=== PATIENT | female | born 1955 | race Caucasian/White ===

== ENCOUNTER 2020-05-19 12:15 | Inpatient (IN) ==
[2020-05-19] MEDS: *HR* OxyCODONE/APAP 10/325 TABLET PO PRN (21:17)
[2020-05-19] MEDS: Pregabalin 75 MG CAPSULE PO SCH (21:17)
[2020-05-20 05:48] LABS: Basophils # 0.1 K/mcL (0.0-0.2); Basophils % 0.8 %; Eosinophils # 0.3 K/mcL (0.0-0.6); Eosinophils % 4.4 %; Hematocrit 42.5 % (35.3-44.9); Hemoglobin 12.3 g/dL (11.5-15.4); Immature Granulocytes % 0.3 % (0-4); Lymphocytes % 15.9 %; Mean Corpuscular HGB Conc 28.9 g/dL (31.6-35.5); Mean Corpuscular Hemoglobin 23.5 pg (28.0-33.3); Mean Corpuscular Volume 81.1 fL (83.0-100.0); Monocytes # 0.7 K/mcL (0.0-1.3); Monocytes % 10.7 %; Neutrophils # 4.2 K/mcL (1.6-8.9); Platelet Count 111 K/mcL (140-400); Red Blood Count 5.24 M/mcL (3.82-4.97); Red Cell Distribution Width 19.9 % (11.5-14.5); Segmented Neutrophils % 67.9 %; White Blood Count 6.2 K/mcL (4.3-11.1)
[2020-05-20] MEDS: *HR* OxyCODONE/APAP 10/325 TABLET PO PRN ×3 (05:53→22:26)
[2020-05-20 06:05] LABS: INR 1.1; Prothrombin Time 13.2 Seconds (9.4-12.1)
[2020-05-20 06:07] LABS: Activated Partial Thrombo Time 30.1 Seconds (26.0-36.0)
[2020-05-20 06:11] LABS: eGFR For African Americans > 60 (> 60); eGFR For Non-African Americans > 60 (> 60)
[2020-05-20 07:26] LABS: BUN/Creatinine Ratio 26 (6-26); Blood Urea Nitrogen 22 mg/dL (8-23); Calcium 8.6 mg/dL (8.6-10.3); Carbon Dioxide 42 mEq/L (23-29); Chloride 93 mEq/L (98-107); Glucose 100 mg/dL (70-105); Osmolality,Calculated 291 (280-300); Potassium 3.8 mEq/L (3.5-5.1); Sodium 139 mEq/L (136-145); eGFR For African Americans > 60 (> 60); eGFR For Non-African Americans > 60 (> 60)
[2020-05-20] MEDS ORDERED: Furosemide 40 MG TABLET PO SCH (08:00)
[2020-05-20 08:34] LABS: Platelet Estimate Decreased (Normal)
[2020-05-20] MEDS ORDERED: Propranolol LA (24 HR) 60 MG CAP.SA.24H PO SCH (09:00)
[2020-05-20] MEDS: allopurinoL 300 MG TABLET PO SCH (09:33)
[2020-05-20] MEDS: Pregabalin 75 MG CAPSULE PO SCH ×3 (09:33→22:12)
[2020-05-20] MEDS: amLODIPine 5 MG TABLET PO SCH (09:34)
[2020-05-20] MEDS: lisinopriL 20 MG TABLET PO SCH (09:34)
[2020-05-20] MEDS: Multivit/Ca/Min/Fe/FA 1 TAB TABLET PO SCH (09:34)
[2020-05-20] MEDS: Loratadine 10 MG TABLET PO SCH (09:34)
[2020-05-20] MEDS: Spironolactone 25 MG TABLET PO SCH (09:34)
[2020-05-20] MEDS: polyethylene glycoL 3350 17 GM POWD.PACK PO SCH (09:34)
[2020-05-20] MEDS: Aspirin Enteric Coated 81 MG Tablet PO SCH (09:34)
[2020-05-20] MEDS: Budesonide/Formoterol 80/4.5 1 PUFF INH IH SCH ×2 (15:23→21:24)
[2020-05-21] MEDS: *HR* OxyCODONE/APAP 10/325 TABLET PO PRN ×3 (06:10→22:16)
[2020-05-21] MEDS: allopurinoL 300 MG TABLET PO SCH (08:40)
[2020-05-21] MEDS: Pregabalin 75 MG CAPSULE PO SCH ×3 (08:40→20:19)
[2020-05-21] MEDS: Propranolol LA (24 HR) 60 MG CAP.SA.24H PO SCH (08:40)
[2020-05-21] MEDS: Furosemide 40 MG TABLET PO SCH (08:41)
[2020-05-21] MEDS: Loratadine 10 MG TABLET PO SCH (08:42)
[2020-05-21] MEDS: polyethylene glycoL 3350 17 GM POWD.PACK PO SCH (08:42)
[2020-05-21] MEDS: Aspirin Enteric Coated 81 MG Tablet PO SCH (08:42)
[2020-05-21] MEDS: Multivit/Ca/Min/Fe/FA 1 TAB TABLET PO SCH (08:42)
[2020-05-21] MEDS: Budesonide/Formoterol 80/4.5 1 PUFF INH IH SCH ×2 (09:12→22:31)
[2020-05-22] MEDS: *HR* OxyCODONE/APAP 10/325 TABLET PO PRN ×4 (05:01→23:29)
[2020-05-22] MEDS: polyethylene glycoL 3350 17 GM POWD.PACK PO SCH (08:40)
[2020-05-22] MEDS: Loratadine 10 MG TABLET PO SCH (08:41)
[2020-05-22] MEDS: Aspirin Enteric Coated 81 MG Tablet PO SCH (08:41)
[2020-05-22] MEDS: allopurinoL 300 MG TABLET PO SCH (08:41)
[2020-05-22] MEDS: Multivit/Ca/Min/Fe/FA 1 TAB TABLET PO SCH (08:42)
[2020-05-22] MEDS: Propranolol LA (24 HR) 60 MG CAP.SA.24H PO SCH (08:42)
[2020-05-22] MEDS: Pregabalin 75 MG CAPSULE PO SCH ×3 (08:43→19:58)
[2020-05-22] MEDS: Budesonide/Formoterol 80/4.5 1 PUFF INH IH SCH ×2 (09:23→21:33)
[2020-05-23] MEDS: *HR* OxyCODONE/APAP 10/325 TABLET PO PRN ×3 (05:49→20:09)
[2020-05-23] MEDS: Propranolol LA (24 HR) 60 MG CAP.SA.24H PO SCH (08:14)
[2020-05-23] MEDS: allopurinoL 300 MG TABLET PO SCH (08:14)
[2020-05-23] MEDS: Loratadine 10 MG TABLET PO SCH (08:14)
[2020-05-23] MEDS: polyethylene glycoL 3350 17 GM POWD.PACK PO SCH (08:14)
[2020-05-23] MEDS: Pregabalin 75 MG CAPSULE PO SCH ×3 (08:14→20:09)
[2020-05-23] MEDS: Multivit/Ca/Min/Fe/FA 1 TAB TABLET PO SCH (08:14)
[2020-05-23] MEDS: Aspirin Enteric Coated 81 MG Tablet PO SCH (08:14)
[2020-05-23] MEDS: Budesonide/Formoterol 80/4.5 1 PUFF INH IH SCH ×2 (10:18→22:39)
[2020-05-23 10:34] LABS: Basophils # 0.1 K/mcL (0.0-0.2); Basophils % 0.6 %; Eosinophils # 0.2 K/mcL (0.0-0.6); Eosinophils % 2.2 %; Hemoglobin 11.5 g/dL (11.5-15.4); Immature Granulocytes % 0.5 % (0-4); Lymphocytes # 0.9 K/mcL (0.6-4.6); Lymphocytes % 10.8 %; Mean Corpuscular HGB Conc 28.8 g/dL (31.6-35.5); Mean Corpuscular Hemoglobin 24.1 pg (28.0-33.3); Mean Corpuscular Volume 83.7 fL (83.0-100.0); Monocytes # 0.7 K/mcL (0.0-1.3); Monocytes % 9.3 %; Platelet Count 102 K/mcL (140-400); Red Blood Count 4.78 M/mcL (3.82-4.97); Segmented Neutrophils % 76.6 %; White Blood Count 7.9 K/mcL (4.3-11.1)
[2020-05-23 10:46] LABS: Alanine Aminotransferase 9 Units/L (7-52); Albumin 3.1 g/dL (3.5-5.7); Albumin/Globulin Ratio 1.1 (1.1-2.2); Alkaline Phosphatase 59 Units/L (34-104); Aspartate Amino Transferase 14 Units/L (13-39); BUN/Creatinine Ratio 20 (6-26); Bilirubin,Total 0.5 mg/dL (0.3-1.0); Blood Urea Nitrogen 18 mg/dL (8-23); Calcium 8.9 mg/dL (8.6-10.3); Carbon Dioxide 38 mEq/L (23-29); Chloride 96 mEq/L (98-107); Globulin 2.9 g/dL (2.4-3.5); Glucose 111 mg/dL (70-105); Osmolality,Calculated 285 (280-300); Potassium 4.3 mEq/L (3.5-5.1); Sodium 136 mEq/L (136-145); eGFR For African Americans > 60 (> 60); eGFR For Non-African Americans > 60 (> 60)
[2020-05-23 10:56] LABS: Platelet Estimate Decreased (Normal)
[2020-05-23 10:57] LABS: Anisocytosis 1+ (Not Present); Hypochromasia Present (Not Present)
[2020-05-24] MEDS: *HR* OxyCODONE/APAP 10/325 TABLET PO PRN ×4 (02:56→23:52)
[2020-05-24] MEDS: Propranolol LA (24 HR) 60 MG CAP.SA.24H PO SCH (08:58)
[2020-05-24] MEDS: Furosemide 40 MG TABLET PO SCH (08:59)
[2020-05-24] MEDS: amLODIPine 5 MG TABLET PO SCH (08:59)
[2020-05-24] MEDS: lisinopriL 20 MG TABLET PO SCH (08:59)
[2020-05-24] MEDS: Budesonide/Formoterol 80/4.5 1 PUFF INH IH SCH ×2 (09:13→20:33)
[2020-05-24] MEDS: Multivit/Ca/Min/Fe/FA 1 TAB TABLET PO SCH (09:20)
[2020-05-24] MEDS: Loratadine 10 MG TABLET PO SCH (09:21)
[2020-05-24] MEDS: polyethylene glycoL 3350 17 GM POWD.PACK PO SCH (09:21)
[2020-05-24] MEDS: Spironolactone 25 MG TABLET PO SCH (09:21)
[2020-05-24] MEDS: Aspirin Enteric Coated 81 MG Tablet PO SCH (09:21)
[2020-05-24] MEDS: Pregabalin 75 MG CAPSULE PO SCH ×3 (09:21→20:21)
[2020-05-24] MEDS: allopurinoL 300 MG TABLET PO SCH (09:21)
[2020-05-25] MEDS: Propranolol LA (24 HR) 60 MG CAP.SA.24H PO SCH (07:56)
[2020-05-25] MEDS: lisinopriL 20 MG TABLET PO SCH (08:01)
[2020-05-25] MEDS: Pregabalin 75 MG CAPSULE PO SCH ×3 (08:03→20:49)
[2020-05-25] MEDS: Spironolactone 25 MG TABLET PO SCH (08:03)
[2020-05-25] MEDS: Multivit/Ca/Min/Fe/FA 1 TAB TABLET PO SCH (08:03)
[2020-05-25] MEDS: Loratadine 10 MG TABLET PO SCH (08:03)
[2020-05-25] MEDS: amLODIPine 5 MG TABLET PO SCH (08:03)
[2020-05-25] MEDS: Aspirin Enteric Coated 81 MG Tablet PO SCH (08:03)
[2020-05-25] MEDS: Furosemide 40 MG TABLET PO SCH (08:03)
[2020-05-25] MEDS: allopurinoL 300 MG TABLET PO SCH (08:04)
[2020-05-25] MEDS: polyethylene glycoL 3350 17 GM POWD.PACK PO SCH (08:05)
[2020-05-25] MEDS: Budesonide/Formoterol 80/4.5 1 PUFF INH IH SCH ×2 (10:58→22:43)
[2020-05-25] MEDS: *HR* OxyCODONE/APAP 10/325 TABLET PO PRN ×3 (11:09→23:49)
[2020-05-26] MEDS: *HR* OxyCODONE/APAP 10/325 TABLET PO PRN ×3 (07:25→22:08)
[2020-05-26] MEDS: lisinopriL 20 MG TABLET PO SCH (07:33)
[2020-05-26] MEDS: Aspirin Enteric Coated 81 MG Tablet PO SCH (07:33)
[2020-05-26] MEDS: Spironolactone 25 MG TABLET PO SCH (07:33)
[2020-05-26] MEDS: amLODIPine 5 MG TABLET PO SCH (07:33)
[2020-05-26] MEDS: allopurinoL 300 MG TABLET PO SCH (07:33)
[2020-05-26] MEDS: Multivit/Ca/Min/Fe/FA 1 TAB TABLET PO SCH (07:33)
[2020-05-26] MEDS: Loratadine 10 MG TABLET PO SCH (07:33)
[2020-05-26] MEDS: Propranolol LA (24 HR) 60 MG CAP.SA.24H PO SCH (07:33)
[2020-05-26] MEDS: Furosemide 40 MG TABLET PO SCH (07:33)
[2020-05-26] MEDS: Pregabalin 75 MG CAPSULE PO SCH ×3 (07:33→20:09)
[2020-05-26] MEDS: polyethylene glycoL 3350 17 GM POWD.PACK PO SCH (07:34)
[2020-05-26] MEDS: Budesonide/Formoterol 80/4.5 1 PUFF INH IH SCH ×2 (08:21→22:20)
[2020-05-26 10:04] LABS: Hematocrit 39.3 % (35.3-44.9); Hemoglobin 11.7 g/dL (11.5-15.4); Mean Corpuscular HGB Conc 29.8 g/dL (31.6-35.5); Mean Corpuscular Hemoglobin 24.2 pg (28.0-33.3); Mean Corpuscular Volume 81.2 fL (83.0-100.0); Red Blood Count 4.84 M/mcL (3.82-4.97); Red Cell Distribution Width 18.6 % (11.5-14.5); White Blood Count 7.3 K/mcL (4.3-11.1)
[2020-05-26 10:05] LABS: Platelet Count 77 K/mcL (140-400)
[2020-05-26 10:19] LABS: BUN/Creatinine Ratio 21 (6-26); Blood Urea Nitrogen 16 mg/dL (8-23); Calcium 8.8 mg/dL (8.6-10.3); Carbon Dioxide 34 mEq/L (23-29); Chloride 91 mEq/L (98-107); Glucose 141 mg/dL (70-105); Osmolality,Calculated 272 (280-300); Potassium 4.5 mEq/L (3.5-5.1); Sodium 129 mEq/L (136-145); eGFR For African Americans > 60 (> 60); eGFR For Non-African Americans > 60 (> 60)
[2020-05-26] MEDS: *HR* Heparin 5,000 UNIT/ML VIAL SQ SCH (16:47)
[2020-05-27] MEDS: *HR* OxyCODONE/APAP 10/325 TABLET PO PRN ×3 (05:07→20:01)
[2020-05-27] MEDS: *HR* Heparin 5,000 UNIT/ML VIAL SQ SCH ×2 (05:07→16:51)
[2020-05-27] MEDS: Aspirin Enteric Coated 81 MG Tablet PO SCH (09:21)
[2020-05-27] MEDS: Loratadine 10 MG TABLET PO SCH (09:22)
[2020-05-27] MEDS: Pregabalin 75 MG CAPSULE PO SCH ×3 (09:22→20:01)
[2020-05-27] MEDS: Propranolol LA (24 HR) 60 MG CAP.SA.24H PO SCH (09:22)
[2020-05-27] MEDS: allopurinoL 300 MG TABLET PO SCH (09:22)
[2020-05-27] MEDS: Spironolactone 25 MG TABLET PO SCH (09:22)
[2020-05-27] MEDS: polyethylene glycoL 3350 17 GM POWD.PACK PO SCH (09:23)
[2020-05-27] MEDS: Multivit/Ca/Min/Fe/FA 1 TAB TABLET PO SCH (09:23)
[2020-05-27] MEDS: Furosemide 40 MG TABLET PO SCH (09:23)
[2020-05-27] MEDS: amLODIPine 5 MG TABLET PO SCH (09:23)
[2020-05-27] MEDS: lisinopriL 20 MG TABLET PO SCH (09:24)
[2020-05-27] MEDS: Budesonide/Formoterol 80/4.5 1 PUFF INH IH SCH ×2 (10:07→21:02)
[2020-05-28] MEDS: *HR* OxyCODONE/APAP 10/325 TABLET PO PRN ×2 (03:00→09:03)
[2020-05-28] MEDS: *HR* Heparin 5,000 UNIT/ML VIAL SQ SCH (06:51)
[2020-05-28 07:15] VITALS: BP 109/53
[2020-05-28] MEDS: polyethylene glycoL 3350 17 GM POWD.PACK PO SCH ×2 (08:14→08:18)
[2020-05-28] MEDS: Aspirin Enteric Coated 81 MG Tablet PO SCH (08:15)
[2020-05-28] MEDS: Spironolactone 25 MG TABLET PO SCH (08:15)
[2020-05-28] MEDS: lisinopriL 20 MG TABLET PO SCH (08:15)
[2020-05-28] MEDS: Furosemide 40 MG TABLET PO SCH (08:15)
[2020-05-28] MEDS: Propranolol LA (24 HR) 60 MG CAP.SA.24H PO SCH (08:15)
[2020-05-28] MEDS: Pregabalin 75 MG CAPSULE PO SCH (08:15)
[2020-05-28] MEDS: amLODIPine 5 MG TABLET PO SCH (08:15)
[2020-05-28] MEDS: Multivit/Ca/Min/Fe/FA 1 TAB TABLET PO SCH (08:15)
[2020-05-28] MEDS: Loratadine 10 MG TABLET PO SCH (08:15)
[2020-05-28] MEDS: allopurinoL 300 MG TABLET PO SCH (08:15)
[2020-05-28] MEDS: Budesonide/Formoterol 80/4.5 1 PUFF INH IH SCH (10:13)
== END 2020-05-28 09:40 | disposition home health service (06) | DRG 178 ==
LOC: INPPIK 19:26
PROVIDERS: ADMIT Family Medicine; ATTEND Family Medicine

== ENCOUNTER 2021-08-08 10:42 | Inpatient (IN) ==
[2021-08-08] MEDS: *HR* Rivaroxaban 10 MG TABLET PO SCH (17:36)
[2021-08-08] MEDS: Nystatin POWDER 30 GM BOTTLE TP PRN (17:36)
[2021-08-08] MEDS: *HR* OxyCODONE/APAP 10/325 TABLET PO PRN ×2 (17:36→22:04)
[2021-08-08] MEDS: Pregabalin 75 MG CAPSULE PO SCH (22:03)
[2021-08-09 07:31] LABS: Basophils # 0.1 K/mcL (0.0-0.2); Basophils % 0.6 %; Eosinophils # 0.4 K/mcL (0.0-0.6); Eosinophils % 3.1 %; Hematocrit 35.9 % (35.3-44.9); Hemoglobin 10.9 g/dL (11.5-15.4); Immature Granulocytes % 1.2 % (0-4); Lymphocytes % 8.8 %; Mean Corpuscular HGB Conc 30.4 g/dL (31.6-35.5); Mean Corpuscular Hemoglobin 28.9 pg (28.0-33.3); Mean Corpuscular Volume 95.2 fL (83.0-100.0); Mean Platelet Volume 11.9 fL (9.4-12.4); Monocytes # 0.9 K/mcL (0.0-1.3); Monocytes % 7.9 %; Neutrophils # 9.3 K/mcL (1.6-8.9); Platelet Count 168 K/mcL (140-400); Red Blood Count 3.77 M/mcL (3.82-4.97); Red Cell Distribution Width 14.9 % (11.5-14.5); Segmented Neutrophils % 78.4 %; White Blood Count 11.9 K/mcL (4.3-11.1)
[2021-08-09 07:35] LABS: Lymphocytes # 1.1 K/mcL (0.6-4.6)
[2021-08-09 07:55] LABS: BUN/Creatinine Ratio 40 (6-26); Blood Urea Nitrogen 19 mg/dL (8-23); Calcium 8.2 mg/dL (8.6-10.3); Carbon Dioxide 31 mEq/L (23-29); Chloride 98 mEq/L (98-107); Glucose 91 mg/dL (70-105); Osmolality,Calculated 282 (280-300); Potassium 4.5 mEq/L (3.5-5.1); Sodium 135 mEq/L (136-145); eGFR For African Americans > 60 (> 60); eGFR For Non-African Americans > 60 (> 60)
[2021-08-09] MEDS ORDERED: amLODIPine 5 MG TABLET PO SCH (09:00)
[2021-08-09] MEDS: FLUoxetine 20 MG CAPSULE PO SCH (09:22)
[2021-08-09] MEDS: Pregabalin 75 MG CAPSULE PO SCH ×3 (09:22→22:28)
[2021-08-09] MEDS: Loratadine 10 MG TABLET PO SCH (09:22)
[2021-08-09] MEDS: Multivit/Ca/Min/Fe/FA 1 TAB TABLET PO SCH (09:22)
[2021-08-09] MEDS: *HR* OxyCODONE/APAP 10/325 TABLET PO PRN ×3 (09:22→22:27)
[2021-08-09] MEDS: allopurinoL 300 MG TABLET PO SCH (09:22)
[2021-08-09] MEDS: lisinopriL 20 MG TABLET PO SCH (09:22)
[2021-08-09] MEDS: Sennosides/Docusate Sodium TABLET PO SCH (22:29)
[2021-08-10] MEDS: *HR* OxyCODONE/APAP 10/325 TABLET PO PRN ×4 (06:43→22:03)
[2021-08-10] MEDS: Furosemide 40 MG TABLET PO SCH ×2 (07:20→09:27)
[2021-08-10] MEDS: polyethylene glycoL 3350 17 GM POWD.PACK PO SCH ×2 (07:21→09:27)
[2021-08-10] MEDS: *HR* Rivaroxaban 10 MG TABLET PO SCH ×2 (07:21→16:55)
[2021-08-10 07:37] LABS: Hematocrit 34.3 % (35.3-44.9); Hemoglobin 10.4 g/dL (11.5-15.4); Mean Corpuscular HGB Conc 30.3 g/dL (31.6-35.5); Mean Corpuscular Hemoglobin 28.7 pg (28.0-33.3); Mean Corpuscular Volume 94.8 fL (83.0-100.0); Mean Platelet Volume 12.3 fL (9.4-12.4); Platelet Count 123 K/mcL (140-400); Red Blood Count 3.62 M/mcL (3.82-4.97); Red Cell Distribution Width 15.1 % (11.5-14.5); White Blood Count 11.5 K/mcL (4.3-11.1)
[2021-08-10 07:51] LABS: Alanine Aminotransferase 11 Units/L (7-52); Albumin 2.5 g/dL (3.5-5.7); Alkaline Phosphatase 77 Units/L (34-104); Aspartate Amino Transferase 15 Units/L (13-39); BUN/Creatinine Ratio 30 (6-26); Bilirubin,Total 0.3 mg/dL (0.3-1.0); Blood Urea Nitrogen 15 mg/dL (8-23); Calcium 8.3 mg/dL (8.6-10.3); Carbon Dioxide 39 mEq/L (23-29); Chloride 95 mEq/L (98-107); Globulin 2.5 g/dL (2.4-3.5); Glucose 99 mg/dL (70-105); Magnesium 1.8 mg/dL (1.6-2.6); Osmolality,Calculated 281 (280-300); Potassium 4.6 mEq/L (3.5-5.1); Sodium 135 mEq/L (136-145); eGFR For African Americans > 60 (> 60); eGFR For Non-African Americans > 60 (> 60)
[2021-08-10] MEDS: allopurinoL 300 MG TABLET PO SCH (09:27)
[2021-08-10] MEDS: Sennosides/Docusate Sodium TABLET PO SCH ×2 (09:27→21:04)
[2021-08-10] MEDS: Pregabalin 75 MG CAPSULE PO SCH ×3 (09:27→21:05)
[2021-08-10] MEDS: Loratadine 10 MG TABLET PO SCH (09:27)
[2021-08-10] MEDS: FLUoxetine 20 MG CAPSULE PO SCH (09:27)
[2021-08-10] MEDS: lisinopriL 20 MG TABLET PO SCH (09:28)
[2021-08-10] MEDS: Multivit/Ca/Min/Fe/FA 1 TAB TABLET PO SCH (09:30)
[2021-08-11] MEDS: FLUoxetine 20 MG CAPSULE PO SCH (08:36)
[2021-08-11] MEDS: allopurinoL 300 MG TABLET PO SCH (08:36)
[2021-08-11] MEDS: Multivit/Ca/Min/Fe/FA 1 TAB TABLET PO SCH ×2 (08:36→10:47)
[2021-08-11] MEDS: Loratadine 10 MG TABLET PO SCH (08:36)
[2021-08-11] MEDS: Pregabalin 75 MG CAPSULE PO SCH ×3 (08:37→20:36)
[2021-08-11] MEDS: lisinopriL 20 MG TABLET PO SCH (08:37)
[2021-08-11] MEDS: Sennosides/Docusate Sodium TABLET PO SCH ×2 (08:37→20:36)
[2021-08-11] MEDS: Furosemide 40 MG TABLET PO SCH (08:38)
[2021-08-11] MEDS: polyethylene glycoL 3350 17 GM POWD.PACK PO SCH (08:38)
[2021-08-11] MEDS: *HR* OxyCODONE/APAP 10/325 TABLET PO PRN ×3 (08:45→20:42)
[2021-08-11] MEDS: *HR* Rivaroxaban 10 MG TABLET PO SCH (16:40)
[2021-08-12] MEDS: Sennosides/Docusate Sodium TABLET PO SCH ×2 (10:36→21:04)
[2021-08-12] MEDS: Furosemide 40 MG TABLET PO SCH (10:36)
[2021-08-12] MEDS: Loratadine 10 MG TABLET PO SCH (10:37)
[2021-08-12] MEDS: Multivit/Ca/Min/Fe/FA 1 TAB TABLET PO SCH (10:37)
[2021-08-12] MEDS: lisinopriL 20 MG TABLET PO SCH (10:37)
[2021-08-12] MEDS: polyethylene glycoL 3350 17 GM POWD.PACK PO SCH (10:37)
[2021-08-12] MEDS: FLUoxetine 20 MG CAPSULE PO SCH (10:37)
[2021-08-12] MEDS: allopurinoL 300 MG TABLET PO SCH (10:37)
[2021-08-12] MEDS: Pregabalin 75 MG CAPSULE PO SCH ×3 (10:37→21:05)
[2021-08-12] MEDS: *HR* OxyCODONE/APAP 10/325 TABLET PO PRN ×2 (11:01→18:24)
[2021-08-12] MEDS: *HR* Rivaroxaban 10 MG TABLET PO SCH (18:24)
[2021-08-13] MEDS: *HR* OxyCODONE/APAP 10/325 TABLET PO PRN ×4 (06:01→22:00)
[2021-08-13] MEDS: Sennosides/Docusate Sodium TABLET PO SCH ×2 (09:33→20:59)
[2021-08-13] MEDS: FLUoxetine 20 MG CAPSULE PO SCH (09:33)
[2021-08-13] MEDS: Loratadine 10 MG TABLET PO SCH (09:33)
[2021-08-13] MEDS: lisinopriL 20 MG TABLET PO SCH (09:33)
[2021-08-13] MEDS: Furosemide 40 MG TABLET PO SCH (09:33)
[2021-08-13] MEDS: Pregabalin 75 MG CAPSULE PO SCH ×3 (09:33→20:57)
[2021-08-13] MEDS: polyethylene glycoL 3350 17 GM POWD.PACK PO SCH (09:34)
[2021-08-13] MEDS: allopurinoL 300 MG TABLET PO SCH (09:34)
[2021-08-13] MEDS: Multivit/Ca/Min/Fe/FA 1 TAB TABLET PO SCH (09:35)
[2021-08-13] MEDS: *HR* Rivaroxaban 10 MG TABLET PO SCH (18:09)
[2021-08-14] MEDS: *HR* OxyCODONE/APAP 10/325 TABLET PO PRN ×4 (01:53→20:06)
[2021-08-14] MEDS: Pregabalin 75 MG CAPSULE PO SCH ×3 (08:56→20:04)
[2021-08-14] MEDS: allopurinoL 300 MG TABLET PO SCH (08:56)
[2021-08-14] MEDS: FLUoxetine 20 MG CAPSULE PO SCH (08:57)
[2021-08-14] MEDS: Loratadine 10 MG TABLET PO SCH (08:58)
[2021-08-14] MEDS: Furosemide 40 MG TABLET PO SCH (08:58)
[2021-08-14] MEDS: lisinopriL 20 MG TABLET PO SCH (08:59)
[2021-08-14] MEDS: Sennosides/Docusate Sodium TABLET PO SCH ×2 (09:00→20:06)
[2021-08-14] MEDS: Multivit/Ca/Min/Fe/FA 1 TAB TABLET PO SCH (09:01)
[2021-08-14] MEDS: polyethylene glycoL 3350 17 GM POWD.PACK PO SCH (09:01)
[2021-08-14] MEDS: *HR* Rivaroxaban 10 MG TABLET PO SCH (16:52)
[2021-08-14 18:15] LABS: Bilirubin,Urine Negative (Negative); Blood,Urine Negative (Negative); Clarity,Urine Clear (Clear); Color,Urine Yellow (Yellow); Glucose,Urine (UA) Normal (Normal); Ketones,Urine Negative (Negative); Leukocyte Esterase,Urine Small (Negative); Nitrite,Urine Negative (Negative); Protein,Urine Negative (Neg-Trace); Urobilinogen,Urine Normal (Normal)
[2021-08-14 18:23] LABS: Bacteria,Urine Few per hpf (None-Few); RBC,Urine 0-3 per hpf (0-3); Squamous Epithelial Cell,Urine Few per hpf (None-Few)
[2021-08-15] MEDS: *HR* OxyCODONE/APAP 10/325 TABLET PO PRN ×5 (06:48→22:53)
[2021-08-15] MEDS: Sennosides/Docusate Sodium TABLET PO SCH ×2 (08:33→22:53)
[2021-08-15] MEDS: Loratadine 10 MG TABLET PO SCH (08:33)
[2021-08-15] MEDS: Furosemide 40 MG TABLET PO SCH (08:33)
[2021-08-15] MEDS: FLUoxetine 20 MG CAPSULE PO SCH (08:33)
[2021-08-15] MEDS: lisinopriL 20 MG TABLET PO SCH (08:34)
[2021-08-15] MEDS: Multivit/Ca/Min/Fe/FA 1 TAB TABLET PO SCH (08:34)
[2021-08-15] MEDS: Pregabalin 75 MG CAPSULE PO SCH ×3 (08:34→22:52)
[2021-08-15] MEDS: allopurinoL 300 MG TABLET PO SCH (08:34)
[2021-08-15] MEDS: polyethylene glycoL 3350 17 GM POWD.PACK PO SCH (08:34)
[2021-08-15] MEDS: *HR* Rivaroxaban 10 MG TABLET PO SCH (17:58)
[2021-08-16] MEDS: *HR* OxyCODONE/APAP 10/325 TABLET PO PRN ×4 (04:05→21:50)
[2021-08-16] MEDS: Furosemide 40 MG TABLET PO SCH (08:20)
[2021-08-16] MEDS: Loratadine 10 MG TABLET PO SCH (08:20)
[2021-08-16] MEDS: allopurinoL 300 MG TABLET PO SCH (08:20)
[2021-08-16] MEDS: Pregabalin 75 MG CAPSULE PO SCH ×3 (08:20→21:08)
[2021-08-16] MEDS: lisinopriL 20 MG TABLET PO SCH (08:21)
[2021-08-16] MEDS: FLUoxetine 20 MG CAPSULE PO SCH (08:21)
[2021-08-16] MEDS: Sennosides/Docusate Sodium TABLET PO SCH ×2 (08:21→21:08)
[2021-08-16] MEDS: polyethylene glycoL 3350 17 GM POWD.PACK PO SCH (08:21)
[2021-08-16] MEDS: *HR* Rivaroxaban 10 MG TABLET PO SCH (17:32)
[2021-08-17] MEDS: *HR* OxyCODONE/APAP 10/325 TABLET PO PRN ×4 (04:48→22:20)
[2021-08-17] MEDS: FLUoxetine 20 MG CAPSULE PO SCH (09:22)
[2021-08-17] MEDS: lisinopriL 20 MG TABLET PO SCH (09:22)
[2021-08-17] MEDS: Pregabalin 75 MG CAPSULE PO SCH ×3 (09:22→22:20)
[2021-08-17] MEDS: Sennosides/Docusate Sodium TABLET PO SCH ×2 (09:23→22:20)
[2021-08-17] MEDS: Furosemide 40 MG TABLET PO SCH (09:23)
[2021-08-17] MEDS: polyethylene glycoL 3350 17 GM POWD.PACK PO SCH (09:23)
[2021-08-17] MEDS: Loratadine 10 MG TABLET PO SCH (09:23)
[2021-08-17] MEDS: allopurinoL 300 MG TABLET PO SCH (09:23)
[2021-08-17] MEDS: *HR* Rivaroxaban 10 MG TABLET PO SCH (17:26)
[2021-08-18] MEDS: lisinopriL 20 MG TABLET PO SCH (06:06)
[2021-08-18] MEDS: FLUoxetine 20 MG CAPSULE PO SCH (06:06)
[2021-08-18] MEDS: Furosemide 40 MG TABLET PO SCH (06:06)
[2021-08-18] MEDS: allopurinoL 300 MG TABLET PO SCH (06:06)
[2021-08-18] MEDS: Loratadine 10 MG TABLET PO SCH (06:06)
[2021-08-18] MEDS: Sennosides/Docusate Sodium TABLET PO SCH ×2 (06:10→21:11)
[2021-08-18] MEDS: *HR* OxyCODONE/APAP 10/325 TABLET PO PRN ×3 (06:10→21:10)
[2021-08-18] MEDS: Pregabalin 75 MG CAPSULE PO SCH ×3 (06:10→21:10)
[2021-08-18] MEDS: polyethylene glycoL 3350 17 GM POWD.PACK PO SCH (06:11)
[2021-08-18] MEDS ORDERED: Fluconazole 150 MG TABLET PO ONE (10:56)
[2021-08-18 11:26] LABS: Basophils # 0.1 K/mcL (0.0-0.2); Basophils % 0.8 %; Eosinophils # 0.3 K/mcL (0.0-0.6); Eosinophils % 3.1 %; Hematocrit 37.1 % (35.3-44.9); Hemoglobin 11.1 g/dL (11.5-15.4); Immature Granulocytes % 0.4 % (0-4); Lymphocytes # 1.1 K/mcL (0.6-4.6); Lymphocytes % 12.9 %; Mean Corpuscular HGB Conc 29.9 g/dL (31.6-35.5); Mean Corpuscular Hemoglobin 28.4 pg (28.0-33.3); Mean Corpuscular Volume 94.9 fL (83.0-100.0); Mean Platelet Volume 11.5 fL (9.4-12.4); Monocytes # 0.7 K/mcL (0.0-1.3); Monocytes % 8.2 %; Neutrophils # 6.2 K/mcL (1.6-8.9); Platelet Count 235 K/mcL (140-400); Red Blood Count 3.91 M/mcL (3.82-4.97); Red Cell Distribution Width 16.1 % (11.5-14.5); Segmented Neutrophils % 74.6 %; White Blood Count 8.4 K/mcL (4.3-11.1)
[2021-08-18 11:47] LABS: BUN/Creatinine Ratio 24 (6-26); Blood Urea Nitrogen 20 mg/dL (8-23); Calcium 8.9 mg/dL (8.6-10.3); Carbon Dioxide 35 mEq/L (23-29); Chloride 95 mEq/L (98-107); Glucose 104 mg/dL (70-105); Osmolality,Calculated 287 (280-300); Potassium 5.3 mEq/L (3.5-5.1); Sodium 137 mEq/L (136-145); eGFR For African Americans > 60 (> 60); eGFR For Non-African Americans > 60 (> 60)
[2021-08-18] MEDS: Doxycycline 100 MG CAPSULE PO SCH (21:10)
[2021-08-18] MEDS: cephALEXin 500 MG CAPSULE PO SCH ×2 (21:10→21:42)
[2021-08-18] MEDS: *HR* Rivaroxaban 10 MG TABLET PO SCH (21:13)
[2021-08-19] MEDS: Loratadine 10 MG TABLET PO SCH (07:42)
[2021-08-19] MEDS: Sennosides/Docusate Sodium TABLET PO SCH ×2 (07:42→19:27)
[2021-08-19] MEDS: allopurinoL 300 MG TABLET PO SCH (07:42)
[2021-08-19] MEDS: FLUoxetine 20 MG CAPSULE PO SCH (07:42)
[2021-08-19] MEDS: Pregabalin 75 MG CAPSULE PO SCH ×3 (07:42→19:27)
[2021-08-19] MEDS: Doxycycline 100 MG CAPSULE PO SCH ×2 (07:43→19:27)
[2021-08-19] MEDS: polyethylene glycoL 3350 17 GM POWD.PACK PO SCH (07:43)
[2021-08-19] MEDS: cephALEXin 500 MG CAPSULE PO SCH ×3 (07:43→19:27)
[2021-08-19] MEDS: Furosemide 40 MG TABLET PO SCH (07:43)
[2021-08-19] MEDS: lisinopriL 20 MG TABLET PO SCH (07:43)
[2021-08-19] MEDS: *HR* OxyCODONE/APAP 10/325 TABLET PO PRN ×2 (14:59→19:27)
[2021-08-19] MEDS: *HR* Rivaroxaban 10 MG TABLET PO SCH (15:09)
[2021-08-20] MEDS: *HR* OxyCODONE/APAP 10/325 TABLET PO PRN ×2 (04:18→08:44)
[2021-08-20] MEDS: Pregabalin 75 MG CAPSULE PO SCH ×3 (08:44→19:56)
[2021-08-20] MEDS: Furosemide 40 MG TABLET PO SCH (08:45)
[2021-08-20] MEDS: Sennosides/Docusate Sodium TABLET PO SCH ×2 (08:45→19:57)
[2021-08-20] MEDS: FLUoxetine 20 MG CAPSULE PO SCH (08:45)
[2021-08-20] MEDS: Loratadine 10 MG TABLET PO SCH (08:45)
[2021-08-20] MEDS: Doxycycline 100 MG CAPSULE PO SCH ×2 (08:45→19:57)
[2021-08-20] MEDS: allopurinoL 300 MG TABLET PO SCH (08:45)
[2021-08-20] MEDS: polyethylene glycoL 3350 17 GM POWD.PACK PO SCH (08:45)
[2021-08-20] MEDS: cephALEXin 500 MG CAPSULE PO SCH ×3 (08:45→19:57)
[2021-08-20] MEDS: *HR* Rivaroxaban 10 MG TABLET PO SCH (16:47)
[2021-08-21] MEDS: *HR* OxyCODONE/APAP 10/325 TABLET PO PRN ×4 (01:24→16:40)
[2021-08-21] MEDS: Sennosides/Docusate Sodium TABLET PO SCH ×2 (09:26→20:09)
[2021-08-21] MEDS: Pregabalin 75 MG CAPSULE PO SCH ×3 (09:27→20:09)
[2021-08-21] MEDS: lisinopriL 20 MG TABLET PO SCH (09:27)
[2021-08-21] MEDS: FLUoxetine 20 MG CAPSULE PO SCH (09:27)
[2021-08-21] MEDS: Furosemide 40 MG TABLET PO SCH ×2 (09:27→20:09)
[2021-08-21] MEDS: Doxycycline 100 MG CAPSULE PO SCH ×2 (09:27→20:09)
[2021-08-21] MEDS: Loratadine 10 MG TABLET PO SCH (09:27)
[2021-08-21] MEDS: cephALEXin 500 MG CAPSULE PO SCH ×3 (09:27→20:09)
[2021-08-21] MEDS: allopurinoL 300 MG TABLET PO SCH (09:28)
[2021-08-21] MEDS: polyethylene glycoL 3350 17 GM POWD.PACK PO SCH (09:28)
[2021-08-21] MEDS: *HR* Rivaroxaban 10 MG TABLET PO SCH (16:38)
[2021-08-22] MEDS: polyethylene glycoL 3350 17 GM POWD.PACK PO SCH (07:24)
[2021-08-22] MEDS: Pregabalin 75 MG CAPSULE PO SCH ×3 (07:27→20:53)
[2021-08-22] MEDS: allopurinoL 300 MG TABLET PO SCH (07:27)
[2021-08-22] MEDS: FLUoxetine 20 MG CAPSULE PO SCH (07:27)
[2021-08-22] MEDS: Doxycycline 100 MG CAPSULE PO SCH ×2 (07:27→20:54)
[2021-08-22] MEDS: Sennosides/Docusate Sodium TABLET PO SCH ×2 (07:27→20:54)
[2021-08-22] MEDS: cephALEXin 500 MG CAPSULE PO SCH ×3 (07:28→20:53)
[2021-08-22] MEDS: lisinopriL 20 MG TABLET PO SCH (07:28)
[2021-08-22] MEDS: Loratadine 10 MG TABLET PO SCH (07:28)
[2021-08-22] MEDS: Furosemide 40 MG TABLET PO SCH ×2 (07:28→20:54)
[2021-08-22] MEDS: *HR* OxyCODONE/APAP 10/325 TABLET PO PRN ×3 (09:57→22:51)
[2021-08-22 14:49] LABS: BUN/Creatinine Ratio 22 (6-26); Blood Urea Nitrogen 20 mg/dL (8-23); Calcium 9.1 mg/dL (8.6-10.3); Carbon Dioxide 36 mEq/L (23-29); Chloride 96 mEq/L (98-107); Glucose 112 mg/dL (70-105); Osmolality,Calculated 289 (280-300); Potassium 4.4 mEq/L (3.5-5.1); Sodium 138 mEq/L (136-145); eGFR For African Americans > 60 (> 60); eGFR For Non-African Americans > 60 (> 60)
[2021-08-22] MEDS: *HR* Rivaroxaban 10 MG TABLET PO SCH (16:20)
[2021-08-23] MEDS: *HR* OxyCODONE/APAP 10/325 TABLET PO PRN ×4 (06:13→21:29)
[2021-08-23 07:51] LABS: BUN/Creatinine Ratio 28 (6-26); Blood Urea Nitrogen 21 mg/dL (8-23); Calcium 8.1 mg/dL (8.6-10.3); Carbon Dioxide 35 mEq/L (23-29); Chloride 97 mEq/L (98-107); Glucose 99 mg/dL (70-105); Osmolality,Calculated 287 (280-300); Potassium 3.4 mEq/L (3.5-5.1); Sodium 137 mEq/L (136-145); eGFR For African Americans > 60 (> 60); eGFR For Non-African Americans > 60 (> 60)
[2021-08-23] MEDS: cephALEXin 500 MG CAPSULE PO SCH ×2 (09:20→15:30)
[2021-08-23] MEDS: Loratadine 10 MG TABLET PO SCH (09:20)
[2021-08-23] MEDS: FLUoxetine 20 MG CAPSULE PO SCH (09:20)
[2021-08-23] MEDS: lisinopriL 20 MG TABLET PO SCH (09:20)
[2021-08-23] MEDS: allopurinoL 300 MG TABLET PO SCH (09:20)
[2021-08-23] MEDS: Sennosides/Docusate Sodium TABLET PO SCH ×2 (09:20→21:28)
[2021-08-23] MEDS: Furosemide 40 MG TABLET PO SCH ×2 (09:20→15:30)
[2021-08-23] MEDS: Doxycycline 100 MG CAPSULE PO SCH ×2 (09:20→21:28)
[2021-08-23] MEDS: polyethylene glycoL 3350 17 GM POWD.PACK PO SCH (09:21)
[2021-08-23] MEDS: Pregabalin 75 MG CAPSULE PO SCH ×3 (09:21→21:29)
[2021-08-23] MEDS: *HR* Rivaroxaban 10 MG TABLET PO SCH (17:29)
[2021-08-24] MEDS: *HR* OxyCODONE/APAP 10/325 TABLET PO PRN ×3 (03:41→20:13)
[2021-08-24] MEDS: Furosemide 40 MG TABLET PO SCH ×2 (06:07→14:08)
[2021-08-24 06:59] LABS: Hematocrit 31.7 % (35.3-44.9); Hemoglobin 9.4 g/dL (11.5-15.4); Mean Corpuscular HGB Conc 29.7 g/dL (31.6-35.5); Mean Corpuscular Hemoglobin 28.1 pg (28.0-33.3); Mean Corpuscular Volume 94.6 fL (83.0-100.0); Platelet Count 100 K/mcL (140-400); Red Blood Count 3.35 M/mcL (3.82-4.97); Red Cell Distribution Width 15.8 % (11.5-14.5); White Blood Count 5.8 K/mcL (4.3-11.1)
[2021-08-24 07:15] LABS: BUN/Creatinine Ratio 32 (6-26); Blood Urea Nitrogen 23 mg/dL (8-23); Calcium 8.2 mg/dL (8.6-10.3); Carbon Dioxide 35 mEq/L (23-29); Chloride 97 mEq/L (98-107); Glucose 96 mg/dL (70-105); Osmolality,Calculated 290 (280-300); Potassium 3.8 mEq/L (3.5-5.1); Sodium 138 mEq/L (136-145); eGFR For African Americans > 60 (> 60); eGFR For Non-African Americans > 60 (> 60)
[2021-08-24] MEDS ORDERED: Furosemide 40 MG TABLET PO SCH (09:00)
[2021-08-24] MEDS: Pregabalin 75 MG CAPSULE PO SCH ×3 (09:03→20:13)
[2021-08-24] MEDS: Doxycycline 100 MG CAPSULE PO SCH ×2 (09:04→20:13)
[2021-08-24] MEDS: FLUoxetine 20 MG CAPSULE PO SCH (09:04)
[2021-08-24] MEDS: lisinopriL 20 MG TABLET PO SCH (09:04)
[2021-08-24] MEDS: allopurinoL 300 MG TABLET PO SCH (09:04)
[2021-08-24] MEDS: Sennosides/Docusate Sodium TABLET PO SCH ×2 (09:04→20:13)
[2021-08-24] MEDS: polyethylene glycoL 3350 17 GM POWD.PACK PO SCH (09:05)
[2021-08-24] MEDS: Loratadine 10 MG TABLET PO SCH (09:05)
[2021-08-24] MEDS: levoFLOXacin 750 MG/150 ML 750 MG/150 ML BAG IVPB SCH (12:10)
[2021-08-24] MEDS: *HR* Rivaroxaban 10 MG TABLET PO SCH (17:57)
[2021-08-25] MEDS: *HR* OxyCODONE/APAP 10/325 TABLET PO PRN ×4 (00:15→17:39)
[2021-08-25] MEDS: Furosemide 40 MG TABLET PO SCH ×2 (06:13→17:35)
[2021-08-25] MEDS: levoFLOXacin 750 MG/150 ML 750 MG/150 ML BAG IVPB SCH (09:40)
[2021-08-25] MEDS: Pregabalin 75 MG CAPSULE PO SCH ×3 (09:43→19:55)
[2021-08-25] MEDS: Loratadine 10 MG TABLET PO SCH (09:43)
[2021-08-25] MEDS: allopurinoL 300 MG TABLET PO SCH (09:44)
[2021-08-25] MEDS: FLUoxetine 20 MG CAPSULE PO SCH (09:44)
[2021-08-25] MEDS: lisinopriL 20 MG TABLET PO SCH (09:44)
[2021-08-25] MEDS: Doxycycline 100 MG CAPSULE PO SCH ×2 (09:44→19:55)
[2021-08-25] MEDS: Sennosides/Docusate Sodium TABLET PO SCH ×2 (09:45→19:55)
[2021-08-25] MEDS: polyethylene glycoL 3350 17 GM POWD.PACK PO SCH (09:45)
[2021-08-25] MEDS: *HR* Rivaroxaban 10 MG TABLET PO SCH (17:36)
[2021-08-25] MEDS: VOLTAREN PO SCH (19:56)
[2021-08-26] MEDS: Furosemide 40 MG TABLET PO SCH ×2 (05:20→15:14)
[2021-08-26] MEDS: Pregabalin 75 MG CAPSULE PO SCH ×3 (09:29→20:12)
[2021-08-26] MEDS: levoFLOXacin 750 MG/150 ML 750 MG/150 ML BAG IVPB SCH (09:29)
[2021-08-26] MEDS: Sennosides/Docusate Sodium TABLET PO SCH ×2 (09:29→20:12)
[2021-08-26] MEDS: FLUoxetine 20 MG CAPSULE PO SCH (09:30)
[2021-08-26] MEDS: allopurinoL 300 MG TABLET PO SCH (09:30)
[2021-08-26] MEDS: Loratadine 10 MG TABLET PO SCH (09:30)
[2021-08-26] MEDS: Doxycycline 100 MG CAPSULE PO SCH ×2 (09:31→20:12)
[2021-08-26] MEDS: lisinopriL 20 MG TABLET PO SCH (09:31)
[2021-08-26] MEDS: VOLTAREN PO SCH ×2 (09:31→20:13)
[2021-08-26] MEDS: polyethylene glycoL 3350 17 GM POWD.PACK PO SCH (09:31)
[2021-08-26] MEDS: *HR* OxyCODONE/APAP 10/325 TABLET PO PRN ×2 (13:28→20:12)
[2021-08-26] MEDS: *HR* Rivaroxaban 10 MG TABLET PO SCH (17:31)
[2021-08-27] MEDS: *HR* OxyCODONE/APAP 10/325 TABLET PO PRN ×4 (01:44→18:53)
[2021-08-27] MEDS: Furosemide 40 MG TABLET PO SCH ×2 (06:31→16:29)
[2021-08-27 07:29] LABS: Basophils % 0.8 %; Eosinophils # 0.2 K/mcL (0.0-0.6); Eosinophils % 4.3 %; Hematocrit 33.4 % (35.3-44.9); Hemoglobin 9.7 g/dL (11.5-15.4); Immature Granulocytes % 0.4 % (0-4); Lymphocytes # 0.8 K/mcL (0.6-4.6); Lymphocytes % 15.3 %; Mean Corpuscular Hemoglobin 26.9 pg (28.0-33.3); Mean Corpuscular Volume 92.5 fL (83.0-100.0); Mean Platelet Volume 11.5 fL (9.4-12.4); Monocytes # 0.5 K/mcL (0.0-1.3); Monocytes % 9.6 %; Neutrophils # 3.7 K/mcL (1.6-8.9); Red Blood Count 3.61 M/mcL (3.82-4.97); Red Cell Distribution Width 15.6 % (11.5-14.5); Segmented Neutrophils % 69.6 %; White Blood Count 5.3 K/mcL (4.3-11.1)
[2021-08-27 07:30] LABS: Platelet Count 86 K/mcL (140-400)
[2021-08-27 07:44] LABS: BUN/Creatinine Ratio 33 (6-26); Blood Urea Nitrogen 27 mg/dL (8-23); Calcium 8.5 mg/dL (8.6-10.3); Carbon Dioxide 36 mEq/L (23-29); Chloride 96 mEq/L (98-107); Glucose 105 mg/dL (70-105); Osmolality,Calculated 291 (280-300); Potassium 3.7 mEq/L (3.5-5.1); Sodium 138 mEq/L (136-145); eGFR For African Americans > 60 (> 60); eGFR For Non-African Americans > 60 (> 60)
[2021-08-27] MEDS: levoFLOXacin 750 MG/150 ML 750 MG/150 ML BAG IVPB SCH (09:24)
[2021-08-27] MEDS: Pregabalin 75 MG CAPSULE PO SCH ×3 (09:25→21:44)
[2021-08-27] MEDS: Loratadine 10 MG TABLET PO SCH (09:25)
[2021-08-27] MEDS: Sennosides/Docusate Sodium TABLET PO SCH ×2 (09:25→21:45)
[2021-08-27] MEDS: Doxycycline 100 MG CAPSULE PO SCH ×2 (09:25→21:44)
[2021-08-27] MEDS: lisinopriL 20 MG TABLET PO SCH (09:25)
[2021-08-27] MEDS: allopurinoL 300 MG TABLET PO SCH (09:25)
[2021-08-27] MEDS: FLUoxetine 20 MG CAPSULE PO SCH (09:26)
[2021-08-27] MEDS: polyethylene glycoL 3350 17 GM POWD.PACK PO SCH (09:27)
[2021-08-27] MEDS: VOLTAREN PO SCH ×2 (09:27→21:45)
[2021-08-27] MEDS: *HR* Rivaroxaban 10 MG TABLET PO SCH (16:29)
[2021-08-28] MEDS: *HR* OxyCODONE/APAP 10/325 TABLET PO PRN ×4 (01:43→23:11)
[2021-08-28] MEDS: Furosemide 40 MG TABLET PO SCH ×2 (05:28→16:35)
[2021-08-28] MEDS: allopurinoL 300 MG TABLET PO SCH (08:56)
[2021-08-28] MEDS: Doxycycline 100 MG CAPSULE PO SCH ×2 (08:56→20:42)
[2021-08-28] MEDS: Pregabalin 75 MG CAPSULE PO SCH ×3 (08:56→20:43)
[2021-08-28] MEDS: FLUoxetine 20 MG CAPSULE PO SCH (08:56)
[2021-08-28] MEDS: Loratadine 10 MG TABLET PO SCH (08:57)
[2021-08-28] MEDS: Sennosides/Docusate Sodium TABLET PO SCH ×2 (08:57→20:43)
[2021-08-28] MEDS: lisinopriL 20 MG TABLET PO SCH (08:58)
[2021-08-28] MEDS: VOLTAREN PO SCH ×2 (09:04→20:44)
[2021-08-28] MEDS: polyethylene glycoL 3350 17 GM POWD.PACK PO SCH (09:04)
[2021-08-28] MEDS: levoFLOXacin 750 MG/150 ML 750 MG/150 ML BAG IVPB SCH (10:02)
[2021-08-28] MEDS: *HR* Rivaroxaban 10 MG TABLET PO SCH (16:33)
[2021-08-29] MEDS: Furosemide 40 MG TABLET PO SCH ×2 (06:40→15:46)
[2021-08-29] MEDS: Loratadine 10 MG TABLET PO SCH (08:28)
[2021-08-29] MEDS: Pregabalin 75 MG CAPSULE PO SCH ×3 (08:28→21:28)
[2021-08-29] MEDS: levoFLOXacin 750 MG/150 ML 750 MG/150 ML BAG IVPB SCH (08:28)
[2021-08-29] MEDS: FLUoxetine 20 MG CAPSULE PO SCH (08:28)
[2021-08-29] MEDS: *HR* OxyCODONE/APAP 10/325 TABLET PO PRN ×3 (08:28→23:31)
[2021-08-29] MEDS: VOLTAREN PO SCH ×2 (08:29→21:29)
[2021-08-29] MEDS: allopurinoL 300 MG TABLET PO SCH (08:29)
[2021-08-29] MEDS: Sennosides/Docusate Sodium TABLET PO SCH ×2 (08:29→21:28)
[2021-08-29] MEDS: polyethylene glycoL 3350 17 GM POWD.PACK PO SCH (08:29)
[2021-08-29] MEDS: lisinopriL 20 MG TABLET PO SCH (08:29)
[2021-08-29] MEDS: *HR* Rivaroxaban 10 MG TABLET PO SCH (15:46)
[2021-08-29] MEDS: Nystatin POWDER 30 GM BOTTLE TP PRN (21:28)
[2021-08-30] MEDS: Furosemide 40 MG TABLET PO SCH ×2 (06:52→17:36)
[2021-08-30] MEDS: allopurinoL 300 MG TABLET PO SCH (09:52)
[2021-08-30] MEDS: lisinopriL 20 MG TABLET PO SCH (09:52)
[2021-08-30] MEDS: FLUoxetine 20 MG CAPSULE PO SCH (09:52)
[2021-08-30] MEDS: Sennosides/Docusate Sodium TABLET PO SCH ×2 (09:52→23:00)
[2021-08-30] MEDS: Pregabalin 75 MG CAPSULE PO SCH ×3 (09:52→23:43)
[2021-08-30] MEDS: levoFLOXacin 750 MG TABLET PO SCH (09:53)
[2021-08-30] MEDS: Loratadine 10 MG TABLET PO SCH (09:53)
[2021-08-30] MEDS: polyethylene glycoL 3350 17 GM POWD.PACK PO SCH (09:54)
[2021-08-30] MEDS: VOLTAREN PO SCH ×2 (09:54→23:00)
[2021-08-30] MEDS: *HR* Rivaroxaban 10 MG TABLET PO SCH (17:18)
[2021-08-30] MEDS: *HR* OxyCODONE/APAP 10/325 TABLET PO PRN (17:19)
[2021-08-30] MEDS ORDERED: polyethylene glycoL 3350 17 GM POWD.PACK PO PRN (23:29)
[2021-08-31] MEDS: *HR* OxyCODONE/APAP 10/325 TABLET PO PRN ×3 (03:08→23:26)
[2021-08-31] MEDS: Furosemide 40 MG TABLET PO SCH ×2 (08:00→15:57)
[2021-08-31] MEDS: polyethylene glycoL 3350 17 GM POWD.PACK PO SCH (09:24)
[2021-08-31] MEDS: levoFLOXacin 750 MG TABLET PO SCH (09:24)
[2021-08-31] MEDS: Sennosides/Docusate Sodium TABLET PO SCH ×2 (09:24→21:05)
[2021-08-31] MEDS: Pregabalin 75 MG CAPSULE PO SCH ×3 (09:24→21:05)
[2021-08-31] MEDS: allopurinoL 300 MG TABLET PO SCH (09:25)
[2021-08-31] MEDS: FLUoxetine 20 MG CAPSULE PO SCH (09:25)
[2021-08-31] MEDS: Loratadine 10 MG TABLET PO SCH (09:25)
[2021-08-31] MEDS: VOLTAREN PO SCH ×2 (09:25→21:06)
[2021-08-31] MEDS: lisinopriL 20 MG TABLET PO SCH (09:26)
[2021-08-31] MEDS ORDERED: Acetaminophen 325 MG TABLET PO PRN (13:29)
[2021-08-31] MEDS: *HR* Rivaroxaban 10 MG TABLET PO SCH (18:30)
[2021-09-01] MEDS: Furosemide 40 MG TABLET PO SCH ×2 (06:05→17:13)
[2021-09-01] MEDS: *HR* OxyCODONE/APAP 10/325 TABLET PO PRN ×3 (06:08→21:35)
[2021-09-01] MEDS: levoFLOXacin 750 MG TABLET PO SCH (07:47)
[2021-09-01] MEDS: Sennosides/Docusate Sodium TABLET PO SCH ×2 (07:47→21:34)
[2021-09-01] MEDS: Loratadine 10 MG TABLET PO SCH (07:47)
[2021-09-01] MEDS: polyethylene glycoL 3350 17 GM POWD.PACK PO SCH (07:47)
[2021-09-01] MEDS: FLUoxetine 20 MG CAPSULE PO SCH (07:47)
[2021-09-01] MEDS: Pregabalin 75 MG CAPSULE PO SCH ×3 (07:47→21:35)
[2021-09-01] MEDS: allopurinoL 300 MG TABLET PO SCH (07:48)
[2021-09-01] MEDS: VOLTAREN PO SCH ×2 (07:49→21:36)
[2021-09-01] MEDS: lisinopriL 10 MG TABLET PO SCH (07:49)
[2021-09-01] MEDS: *HR* Rivaroxaban 10 MG TABLET PO SCH (17:13)
[2021-09-02] MEDS: Furosemide 40 MG TABLET PO SCH ×2 (05:01→15:26)
[2021-09-02] MEDS: *HR* OxyCODONE/APAP 10/325 TABLET PO PRN ×4 (05:01→22:04)
[2021-09-02 07:40] LABS: Basophils # 0.1 K/mcL (0.0-0.2); Basophils % 0.9 %; Eosinophils # 0.3 K/mcL (0.0-0.6); Eosinophils % 3.3 %; Hemoglobin 10.9 g/dL (11.5-15.4); Immature Granulocytes % 0.4 % (0-4); Lymphocytes % 13.2 %; Mean Corpuscular HGB Conc 29.5 g/dL (31.6-35.5); Mean Corpuscular Hemoglobin 26.7 pg (28.0-33.3); Mean Corpuscular Volume 90.5 fL (83.0-100.0); Mean Platelet Volume 11.3 fL (9.4-12.4); Monocytes # 0.7 K/mcL (0.0-1.3); Monocytes % 9.4 %; Neutrophils # 5.5 K/mcL (1.6-8.9); Red Blood Count 4.09 M/mcL (3.82-4.97); Red Cell Distribution Width 15.7 % (11.5-14.5); Segmented Neutrophils % 72.8 %; White Blood Count 7.6 K/mcL (4.3-11.1)
[2021-09-02 08:32] LABS: Platelet Count 87 K/mcL (140-400)
[2021-09-02 08:45] LABS: BUN/Creatinine Ratio 31 (6-26); Blood Urea Nitrogen 28 mg/dL (8-23); Calcium 8.9 mg/dL (8.6-10.3); Carbon Dioxide 36 mEq/L (23-29); Chloride 98 mEq/L (98-107); Glucose 108 mg/dL (70-105); Magnesium 1.9 mg/dL (1.6-2.6); Osmolality,Calculated 296 (280-300); Potassium 4.8 mEq/L (3.5-5.1); Sodium 140 mEq/L (136-145); eGFR For African Americans > 60 (> 60); eGFR For Non-African Americans > 60 (> 60)
[2021-09-02] MEDS: FLUoxetine 20 MG CAPSULE PO SCH (09:34)
[2021-09-02] MEDS: levoFLOXacin 750 MG TABLET PO SCH (09:34)
[2021-09-02] MEDS: Loratadine 10 MG TABLET PO SCH (09:34)
[2021-09-02] MEDS: Sennosides/Docusate Sodium TABLET PO SCH ×2 (09:34→22:03)
[2021-09-02] MEDS: Pregabalin 75 MG CAPSULE PO SCH ×3 (09:34→22:03)
[2021-09-02] MEDS: allopurinoL 300 MG TABLET PO SCH (09:34)
[2021-09-02] MEDS: lisinopriL 10 MG TABLET PO SCH (09:34)
[2021-09-02] MEDS: polyethylene glycoL 3350 17 GM POWD.PACK PO SCH (09:35)
[2021-09-02] MEDS: VOLTAREN PO SCH ×2 (09:35→22:07)
[2021-09-02] MEDS: *HR* Rivaroxaban 10 MG TABLET PO SCH (15:27)
[2021-09-03] MEDS: Nystatin POWDER 30 GM BOTTLE TP PRN (06:29)
[2021-09-03] MEDS: Furosemide 40 MG TABLET PO SCH ×2 (06:29→17:09)
[2021-09-03] MEDS: Pregabalin 75 MG CAPSULE PO SCH ×3 (10:06→21:47)
[2021-09-03] MEDS: lisinopriL 10 MG TABLET PO SCH (10:07)
[2021-09-03] MEDS: allopurinoL 300 MG TABLET PO SCH (10:07)
[2021-09-03] MEDS: Sennosides/Docusate Sodium TABLET PO SCH ×2 (10:07→21:47)
[2021-09-03] MEDS: VOLTAREN PO SCH ×2 (10:07→21:48)
[2021-09-03] MEDS: FLUoxetine 20 MG CAPSULE PO SCH (10:07)
[2021-09-03] MEDS: Loratadine 10 MG TABLET PO SCH (10:07)
[2021-09-03] MEDS: polyethylene glycoL 3350 17 GM POWD.PACK PO SCH (10:07)
[2021-09-03] MEDS: *HR* OxyCODONE/APAP 10/325 TABLET PO PRN ×2 (13:40→21:47)
[2021-09-03] MEDS: *HR* Rivaroxaban 10 MG TABLET PO SCH (17:07)
[2021-09-04] MEDS: Furosemide 40 MG TABLET PO SCH ×2 (05:52→16:58)
[2021-09-04] MEDS: *HR* OxyCODONE/APAP 10/325 TABLET PO PRN ×3 (05:52→23:38)
[2021-09-04] MEDS: VOLTAREN PO SCH ×2 (10:23→19:40)
[2021-09-04] MEDS: lisinopriL 10 MG TABLET PO SCH (10:23)
[2021-09-04] MEDS: Sennosides/Docusate Sodium TABLET PO SCH ×2 (10:23→19:39)
[2021-09-04] MEDS: polyethylene glycoL 3350 17 GM POWD.PACK PO SCH (10:23)
[2021-09-04] MEDS: Loratadine 10 MG TABLET PO SCH (10:23)
[2021-09-04] MEDS: allopurinoL 300 MG TABLET PO SCH (10:23)
[2021-09-04] MEDS: Pregabalin 75 MG CAPSULE PO SCH ×3 (10:23→19:39)
[2021-09-04] MEDS: FLUoxetine 20 MG CAPSULE PO SCH (10:23)
[2021-09-04] MEDS: *HR* Rivaroxaban 10 MG TABLET PO SCH (16:58)
[2021-09-05] MEDS: *HR* OxyCODONE/APAP 10/325 TABLET PO PRN ×3 (04:27→19:41)
[2021-09-05] MEDS: Furosemide 40 MG TABLET PO SCH ×2 (05:19→14:07)
[2021-09-05] MEDS: lisinopriL 10 MG TABLET PO SCH ×2 (07:51→08:01)
[2021-09-05] MEDS: FLUoxetine 20 MG CAPSULE PO SCH (07:51)
[2021-09-05] MEDS: allopurinoL 300 MG TABLET PO SCH (07:51)
[2021-09-05] MEDS: Sennosides/Docusate Sodium TABLET PO SCH ×2 (07:52→19:41)
[2021-09-05] MEDS: Pregabalin 75 MG CAPSULE PO SCH (07:52)
[2021-09-05] MEDS: Loratadine 10 MG TABLET PO SCH (07:52)
[2021-09-05] MEDS: polyethylene glycoL 3350 17 GM POWD.PACK PO SCH (07:52)
[2021-09-05] MEDS: VOLTAREN PO SCH ×2 (07:53→19:41)
[2021-09-05] MEDS: *HR* Rivaroxaban 10 MG TABLET PO SCH (17:11)
[2021-09-06] MEDS: *HR* OxyCODONE/APAP 10/325 TABLET PO PRN ×4 (06:13→21:25)
[2021-09-06] MEDS: Furosemide 40 MG TABLET PO SCH ×2 (06:14→16:06)
[2021-09-06] MEDS: allopurinoL 300 MG TABLET PO SCH (08:42)
[2021-09-06] MEDS: Sennosides/Docusate Sodium TABLET PO SCH ×2 (08:42→21:25)
[2021-09-06] MEDS: FLUoxetine 20 MG CAPSULE PO SCH (08:42)
[2021-09-06] MEDS: Loratadine 10 MG TABLET PO SCH (08:42)
[2021-09-06] MEDS: VOLTAREN PO SCH ×2 (08:42→23:18)
[2021-09-06] MEDS: lisinopriL 10 MG TABLET PO SCH (08:42)
[2021-09-06] MEDS: polyethylene glycoL 3350 17 GM POWD.PACK PO SCH (08:43)
[2021-09-06] MEDS: *HR* Rivaroxaban 10 MG TABLET PO SCH (16:06)
[2021-09-07] MEDS: *HR* OxyCODONE/APAP 10/325 TABLET PO PRN ×4 (03:30→18:10)
[2021-09-07] MEDS: Furosemide 40 MG TABLET PO SCH ×2 (06:28→17:17)
[2021-09-07 07:01] VITALS: BP 103/64; PULSE 82; RESP 18; TEMP 97.7; O2SAT 95
[2021-09-07] MEDS: lisinopriL 10 MG TABLET PO SCH (09:03)
[2021-09-07] MEDS: Sennosides/Docusate Sodium TABLET PO SCH (09:03)
[2021-09-07] MEDS: allopurinoL 300 MG TABLET PO SCH (09:03)
[2021-09-07] MEDS: FLUoxetine 20 MG CAPSULE PO SCH (09:03)
[2021-09-07] MEDS: Loratadine 10 MG TABLET PO SCH (09:04)
[2021-09-07] MEDS: polyethylene glycoL 3350 17 GM POWD.PACK PO SCH (09:04)
[2021-09-07] MEDS: VOLTAREN PO SCH (09:04)
[2021-09-07] MEDS: *HR* Rivaroxaban 10 MG TABLET PO SCH (17:16)
== END 2021-09-07 20:35 | disposition hospice, home (50) | DRG 602 ==
LOC: INPPIK 16:05
PROVIDERS: ADMIT Family Medicine; ATTEND Family Medicine

== ENCOUNTER 2021-09-26 14:36 | Inpatient (IN) ==
[2021-09-26] MEDS ORDERED: Ondansetron ODT 4 MG TAB.RAPDIS SL PRN (15:16)
[2021-09-26] MEDS ORDERED: Acetaminophen 325 MG TABLET PO PRN (15:16)
[2021-09-26] MEDS ORDERED: Hyoscyamine SL 0.125 MG TAB.SUBL SL PRN (15:22)
[2021-09-26] MEDS ORDERED: haloperidoL 1 MG TABLET PO PRN (15:22)
[2021-09-26] MEDS ORDERED: traZODone 50 MG TABLET PO PRN (15:22)
[2021-09-26] MEDS ORDERED: Saline Nasal Spray 44 ML BOTTLE NS PRN (15:22)
[2021-09-26] MEDS ORDERED: Ipratropium/Albuterol Neb 3 ML IH PRN (15:22)
[2021-09-26] MEDS ORDERED: Bisacodyl 10 MG RECTAL SUPPOSITORY RC PRN (15:22)
[2021-09-26] MEDS ORDERED: *HR* LORazepam 0.5 MG TABLET PO PRN (15:22)
[2021-09-26] MEDS: *HR* Rivaroxaban 10 MG TABLET PO SCH (17:31)
[2021-09-26] MEDS: *HR* OxyCODONE/APAP 10/325 TABLET PO PRN ×2 (17:31→23:40)
[2021-09-26] MEDS ORDERED: *HR* Heparin 5,000 UNIT/ML VIAL SQ SCH (18:00)
[2021-09-26] MEDS: Pregabalin 75 MG CAPSULE PO SCH (21:44)
[2021-09-27] MEDS: *HR* OxyCODONE/APAP 10/325 TABLET PO PRN ×3 (05:54→21:21)
[2021-09-27 07:21] LABS: BUN/Creatinine Ratio 33 (6-26); Blood Urea Nitrogen 26 mg/dL (8-23); Calcium 8.9 mg/dL (8.6-10.3); Carbon Dioxide 38 mEq/L (23-29); Chloride 96 mEq/L (98-107); Glucose 101 mg/dL (70-105); Osmolality,Calculated 291 (280-300); Potassium 4.3 mEq/L (3.5-5.1); Sodium 138 mEq/L (136-145); eGFR For African Americans > 60 (> 60); eGFR For Non-African Americans > 60 (> 60)
[2021-09-27 07:41] LABS: Basophils % 0.6 %; Eosinophils # 0.3 K/mcL (0.0-0.6); Eosinophils % 3.9 %; Hemoglobin 9.9 g/dL (11.5-15.4); Immature Granulocytes % 0.2 % (0-4); Lymphocytes # 0.9 K/mcL (0.6-4.6); Lymphocytes % 13.8 %; Mean Corpuscular HGB Conc 28.3 g/dL (31.6-35.5); Mean Corpuscular Hemoglobin 25.4 pg (28.0-33.3); Monocytes # 0.5 K/mcL (0.0-1.3); Monocytes % 7.4 %; Neutrophils # 4.8 K/mcL (1.6-8.9); Red Blood Count 3.89 M/mcL (3.82-4.97); Red Cell Distribution Width 18.4 % (11.5-14.5); Segmented Neutrophils % 74.1 %; White Blood Count 6.5 K/mcL (4.3-11.1)
[2021-09-27 07:43] LABS: Mean Platelet Volume 10.5 fL (9.4-12.4)
[2021-09-27 07:49] LABS: Platelet Count 79 K/mcL (140-400)
[2021-09-27] MEDS: lisinopriL 10 MG TABLET PO SCH (08:54)
[2021-09-27] MEDS: Multivit/Ca/Min/Fe/FA 1 TAB TABLET PO SCH (08:54)
[2021-09-27] MEDS: Pregabalin 75 MG CAPSULE PO SCH ×3 (08:54→19:08)
[2021-09-27] MEDS: allopurinoL 300 MG TABLET PO SCH (08:55)
[2021-09-27] MEDS: Loratadine 10 MG TABLET PO SCH (08:55)
[2021-09-27] MEDS: Spironolactone 25 MG TABLET PO SCH (08:55)
[2021-09-27] MEDS: amLODIPine 5 MG TABLET PO SCH (08:55)
[2021-09-27] MEDS ORDERED: LACTOSE REDUCED FOOD PO SCH (09:00)
[2021-09-27] MEDS ORDERED: Furosemide 40 MG TABLET PO SCH (09:00)
[2021-09-27] MEDS ORDERED: *HR* LORazepam 0.5 MG TABLET PO PRN (15:35)
[2021-09-27] MEDS: *HR* Rivaroxaban 10 MG TABLET PO SCH (15:44)
[2021-09-27] MEDS: Furosemide 40 MG TABLET PO SCH (16:35)
[2021-09-28] MEDS: Pregabalin 75 MG CAPSULE PO SCH ×3 (09:37→21:34)
[2021-09-28] MEDS: lisinopriL 10 MG TABLET PO SCH (09:37)
[2021-09-28] MEDS: amLODIPine 5 MG TABLET PO SCH (09:37)
[2021-09-28] MEDS: allopurinoL 300 MG TABLET PO SCH (09:37)
[2021-09-28] MEDS: Loratadine 10 MG TABLET PO SCH (09:37)
[2021-09-28] MEDS: *HR* OxyCODONE/APAP 10/325 TABLET PO PRN ×3 (09:37→22:34)
[2021-09-28] MEDS: Furosemide 40 MG TABLET PO SCH ×2 (09:38→16:30)
[2021-09-28] MEDS: Multivit/Ca/Min/Fe/FA 1 TAB TABLET PO SCH (09:38)
[2021-09-28] MEDS: Spironolactone 25 MG TABLET PO SCH (09:38)
[2021-09-28] MEDS: *HR* Rivaroxaban 10 MG TABLET PO SCH (16:30)
[2021-09-29] MEDS: *HR* OxyCODONE/APAP 10/325 TABLET PO PRN ×3 (04:42→20:47)
[2021-09-29] MEDS: Loratadine 10 MG TABLET PO SCH (09:11)
[2021-09-29] MEDS: Pregabalin 75 MG CAPSULE PO SCH ×3 (09:11→20:44)
[2021-09-29] MEDS: allopurinoL 300 MG TABLET PO SCH (09:11)
[2021-09-29] MEDS: Multivit/Ca/Min/Fe/FA 1 TAB TABLET PO SCH (09:12)
[2021-09-29] MEDS: lisinopriL 10 MG TABLET PO SCH (09:15)
[2021-09-29] MEDS: Spironolactone 25 MG TABLET PO SCH (09:16)
[2021-09-29] MEDS: Furosemide 40 MG TABLET PO SCH ×2 (09:16→15:30)
[2021-09-29] MEDS: amLODIPine 5 MG TABLET PO SCH (09:16)
[2021-09-29] MEDS: *HR* Rivaroxaban 10 MG TABLET PO SCH (15:30)
[2021-09-30] MEDS: *HR* OxyCODONE/APAP 10/325 TABLET PO PRN ×3 (02:42→17:21)
[2021-09-30] MEDS: Multivit/Ca/Min/Fe/FA 1 TAB TABLET PO SCH (09:04)
[2021-09-30] MEDS: lisinopriL 10 MG TABLET PO SCH (09:04)
[2021-09-30] MEDS: allopurinoL 300 MG TABLET PO SCH (09:05)
[2021-09-30] MEDS: Loratadine 10 MG TABLET PO SCH (09:05)
[2021-09-30] MEDS: Spironolactone 25 MG TABLET PO SCH (09:05)
[2021-09-30] MEDS: amLODIPine 5 MG TABLET PO SCH (09:05)
[2021-09-30] MEDS: Pregabalin 75 MG CAPSULE PO SCH ×3 (09:05→20:07)
[2021-09-30] MEDS: Furosemide 40 MG TABLET PO SCH ×2 (09:06→17:21)
[2021-09-30] MEDS: *HR* Rivaroxaban 10 MG TABLET PO SCH (17:20)
[2021-10-01] MEDS: *HR* OxyCODONE/APAP 10/325 TABLET PO PRN ×3 (01:07→22:46)
[2021-10-01] MEDS: lisinopriL 10 MG TABLET PO SCH (09:56)
[2021-10-01] MEDS: Pregabalin 75 MG CAPSULE PO SCH ×3 (09:56→22:33)
[2021-10-01] MEDS: allopurinoL 300 MG TABLET PO SCH (09:56)
[2021-10-01] MEDS: amLODIPine 5 MG TABLET PO SCH (09:57)
[2021-10-01] MEDS: Loratadine 10 MG TABLET PO SCH (09:57)
[2021-10-01] MEDS: Spironolactone 25 MG TABLET PO SCH (09:57)
[2021-10-01] MEDS: Furosemide 40 MG TABLET PO SCH (09:57)
[2021-10-01] MEDS: Multivit/Ca/Min/Fe/FA 1 TAB TABLET PO SCH (09:57)
[2021-10-01 12:33] LABS: Bilirubin,Urine Negative (Negative); Blood,Urine Negative (Negative); Clarity,Urine Clear (Clear); Color,Urine Yellow (Yellow); Glucose,Urine (UA) Normal (Normal); Ketones,Urine Negative (Negative); Leukocyte Esterase,Urine Small (Negative); Nitrite,Urine Negative (Negative); Protein,Urine Negative (Neg-Trace); Specific Gravity,Urine 1.015 (1.010-1.025); Urobilinogen,Urine Normal (Normal)
[2021-10-01 12:40] LABS: WBC,Urine 0-3 per hpf (0-3)
[2021-10-01 12:59] LABS: Amphetamine Screen,Urine Negative ng/mL (Cutoff=1000); Barbiturate Screen,Urine Negative ng/mL (Cutoff=200); Benzodiazepines Screen,Urine Negative ng/mL (Cutoff=200); Cannabinoid Screen,Urine Negative ng/mL (Cutoff = 50); Cocaine Screen,Urine Negative ng/mL (Cutoff= 300); Opiate Screen,Urine Negative ng/mL (Cutoff=300); Phencyclidine Screen,Urine Negative ng/mL (Cutoff=25)
[2021-10-01] MEDS: Furosemide 20 MG TABLET PO SCH (17:29)
[2021-10-01] MEDS: *HR* Rivaroxaban 10 MG TABLET PO SCH (17:29)
[2021-10-02] MEDS: *HR* OxyCODONE/APAP 10/325 TABLET PO PRN ×3 (05:13→19:34)
[2021-10-02] MEDS: Spironolactone 25 MG TABLET PO SCH (09:44)
[2021-10-02] MEDS: Loratadine 10 MG TABLET PO SCH (09:44)
[2021-10-02] MEDS: Pregabalin 75 MG CAPSULE PO SCH ×3 (09:44→19:33)
[2021-10-02] MEDS: allopurinoL 300 MG TABLET PO SCH (09:44)
[2021-10-02] MEDS: Furosemide 20 MG TABLET PO SCH ×2 (09:44→16:29)
[2021-10-02] MEDS: amLODIPine 5 MG TABLET PO SCH (09:44)
[2021-10-02] MEDS: Multivit/Ca/Min/Fe/FA 1 TAB TABLET PO SCH (09:45)
[2021-10-02] MEDS: *HR* Rivaroxaban 10 MG TABLET PO SCH (16:29)
[2021-10-03] MEDS: *HR* OxyCODONE/APAP 10/325 TABLET PO PRN ×4 (02:24→23:00)
[2021-10-03] MEDS: amLODIPine 5 MG TABLET PO SCH (09:01)
[2021-10-03] MEDS: allopurinoL 300 MG TABLET PO SCH (09:01)
[2021-10-03] MEDS: Pregabalin 75 MG CAPSULE PO SCH ×3 (09:01→21:43)
[2021-10-03] MEDS: Loratadine 10 MG TABLET PO SCH (09:01)
[2021-10-03] MEDS: Furosemide 20 MG TABLET PO SCH ×2 (09:02→16:46)
[2021-10-03] MEDS: Spironolactone 25 MG TABLET PO SCH (09:02)
[2021-10-03] MEDS: Multivit/Ca/Min/Fe/FA 1 TAB TABLET PO SCH (09:05)
[2021-10-03] MEDS: *HR* Rivaroxaban 10 MG TABLET PO SCH (16:46)
[2021-10-03 19:37] VITALS: PULSE 87
[2021-10-04] MEDS: *HR* OxyCODONE/APAP 10/325 TABLET PO PRN ×2 (05:22→13:49)
[2021-10-04 07:32] VITALS: BP 103/64; RESP 18; TEMP 97.6; O2SAT 94
[2021-10-04] MEDS: Loratadine 10 MG TABLET PO SCH (08:59)
[2021-10-04] MEDS: allopurinoL 300 MG TABLET PO SCH (08:59)
[2021-10-04] MEDS: amLODIPine 5 MG TABLET PO SCH (08:59)
[2021-10-04] MEDS: Pregabalin 75 MG CAPSULE PO SCH ×2 (08:59→13:49)
[2021-10-04] MEDS: Spironolactone 25 MG TABLET PO SCH (09:00)
[2021-10-04] MEDS: Multivit/Ca/Min/Fe/FA 1 TAB TABLET PO SCH (09:00)
[2021-10-04] MEDS: Furosemide 20 MG TABLET PO SCH (09:00)
== END 2021-10-04 16:05 | disposition hospice, home (50) | DRG 602 ==
LOC: INPPIK 14:39
PROVIDERS: ADMIT Family Medicine; ATTEND Family Medicine